=== PATIENT | female | born 1990 | race Caucasian/White ===

== ENCOUNTER 2021-12-07 11:37 | Inpatient (IN) | payer OTHER ==
[~2021-12-07] VITALS: Ht 162.6 cm; Wt 117.9 kg
[2021-12-07] MEDS ORDERED: DINOPROSTONE 10 MG SUPP VG ONE (13:15)
[2021-12-07] MEDS ORDERED: LR 500 ML IV ONE (13:15)
[2021-12-07] MEDS ORDERED: INSULIN REGULAR, HUMAN 100 UNITS/ML, 10 ML VIAL (humuLIN R) SUBCUT PRN (13:30)
[2021-12-07 13:54] LABS: BASOPHILS # (AUTO) 0.2 K/uL (0.0-0.2); EOSINOPHILS # (AUTO) 0.1 K/uL (0.0-0.4); HEMATOCRIT 35.4 % (36-48); HEMOGLOBIN 11.9 g/dL (12.0-16.0); LYMPHOCYTES # (AUTO) 1.8 K/uL (1.0-5.5); LYMPHOCYTES % (AUTO) 14.6 % (20.5-51.5); MEAN CORPUSCULAR HEMOGLOBIN 28 pg (27-31); MEAN CORPUSCULAR HGB CONC 34 % (32-36); MEAN CORPUSCULAR VOLUME 82 fL (79.0-98.0); MONOCYTES # (AUTO) 0.6 K/uL (0.0-1.0); MONOCYTES % (AUTO) 4.8 % (1.7-9.3); NEUTROPHILS # (AUTO) 9.5 K/uL (1.8-7.7); NEUTROPHILS % (AUTO) 77.6 % (40.0-70.0); PLATELET COUNT (AUTO) 251 K/uL (130-430); RED BLOOD CELL COUNT(AUTO) 4.32 MIL/uL (4.2-6.2); WHITE BLOOD COUNT (AUTO) 12.2 K/uL (4.8-10.8)
[2021-12-07] MEDS: LR 1,000 ML IV SCH (14:32)
[2021-12-07] MEDS ORDERED: AMPICILLIN SODIUM 2 GM in NS 100 ML IV ONE (15:45)
[2021-12-07 18:17] VITALS: BP_SYST 129
[2021-12-07] MEDS: AMPICILLIN SODIUM 1 GM in NS 50 ML IV SCH (21:18)
[2021-12-08] MEDS: LR 1,000 ML IV SCH ×2 (00:48→04:39)
[2021-12-08] MEDS: AMPICILLIN SODIUM 1 GM in NS 50 ML IV SCH ×4 (01:23→13:12)
[2021-12-08] MEDS ORDERED: MEPERIDINE HCL/PF 25 MG/ML DISP.SYRIN IVP PRN (04:15)
[2021-12-08] MEDS ORDERED: fentaNYL CITRATE/PF 100 MCG/2 ML AMP ONE (04:42)
[2021-12-08] MEDS ORDERED: ROPIVACAINE HCL/PF 0.2% 200 ML ONE (04:43)
[2021-12-08] MEDS: OXYTOCIN/0.9 % SODIUM CHLORIDE 1,000 ML IV SCH ×2 (05:11→23:56)
[2021-12-08] MEDS ORDERED: FENT2mCg/mL-ROPIVA0.2%/NS EPID 200 ML EP SCH (05:15)
[2021-12-08] MEDS ORDERED: LR 500 ML IV ONE (05:15)
[2021-12-08] MEDS ORDERED: LIDOCAINE PF 1% 30ML(POUR BTL) INJ ONE (12:20)
[2021-12-08] MEDS ORDERED: LIGHT MINERAL OIL 10 ML VIAL MC ONE ×2 (12:20→12:21)
[2021-12-08] MEDS ORDERED: NALOXONE HCL 0.4 MG/ML AMP (NARCAN) ONE (12:21)
[2021-12-08] MEDS ORDERED: LR 1,000 ML IV.SOLN IV ONE (14:45)
[2021-12-08] MEDS ORDERED: NS IRRIG SOLN 1000 ML IR ONE (14:45)
[2021-12-08] MEDS ORDERED: ONDANSETRON HCL 4 MG/2 ML VIAL ONE (14:45)
[2021-12-08] MEDS ORDERED: BUPIVACAINE /PF 0.5% 30 ML VIAL ONE (14:45)
[2021-12-08] MEDS ORDERED: MORPHINE SULFATE 10MG/10ML PF AMP ONE (14:45)
[2021-12-08] MEDS ORDERED: CEFAZOLIN 2 GM IVPB PREMIX 50 ML IV ONE (15:00)
[2021-12-08] MEDS ORDERED: NALBUPHINE HCL 10 MG/ML AMP IVP PRN (15:30)
[2021-12-08] MEDS ORDERED: DIPHENHYDRAMINE INJ 50 MG/ML VIAL IVP PRN (15:30)
[2021-12-08] MEDS ORDERED: NALOXONE HCL 0.4 MG/ML AMP (NARCAN) IVP PRN ×2 (15:30)
[2021-12-08] MEDS ORDERED: MORPHINE SULFATE 10MG/10ML PF AMP EP SCH (15:30)
[2021-12-08 15:49] VITALS: BP_SYST 123
[2021-12-08] MEDS ORDERED: KETOROLAC TROMETHAMINE 30 MG VIAL ONE (16:57)
[2021-12-08] MEDS: KETOROLAC TROMETHAMINE 60 MG/2 ML VIAL IM PRN (17:00)
[2021-12-08] MEDS: ONDANSETRON HCL 4 MG/2 ML VIAL IVP PRN (18:42)
[2021-12-08] MEDS ORDERED: ACETAMINOPHEN I.V. 1000 MG 100 ML IV ONE (19:15)
[2021-12-08] MEDS ORDERED: ceFAZolin SODIUM 2 GM in D5W 100 ML IV SCH (23:45)
[2021-12-09] MEDS: KETOROLAC TROMETHAMINE 60 MG/2 ML VIAL IM PRN (00:19)
[2021-12-09] MEDS: ONDANSETRON HCL 4 MG/2 ML VIAL IVP PRN (00:54)
[2021-12-09] MEDS ORDERED: KETOROLAC TROMETHAMINE 30 MG VIAL IM ONE (08:15)
[2021-12-09] MEDS ORDERED: ceFAZolin SODIUM 1 GM VIAL ONE ×2 (09:33→18:28)
[2021-12-09] MEDS ORDERED: KETOROLAC TROMETHAMINE 30 MG VIAL IVP SCH (09:45)
[2021-12-09] MEDS ORDERED: MORPHINE 2 MG/ML INJ. SYRINGE IVP PRN (10:15)
[2021-12-09] MEDS ORDERED: NALOXONE HCL 0.4 MG/ML AMP (NARCAN) IVP PRN ×2 (10:15→18:00)
[2021-12-09] MEDS ORDERED: MORPHINE SULFATE 10 MG/ML VIAL IVP PRN (12:00)
[2021-12-09] MEDS ORDERED: KETOROLAC TROMETHAMINE 30 MG VIAL IM SCH (12:00)
[2021-12-09] MEDS ORDERED: ceFAZolin SODIUM 1 GM in D5W 50 ML IV SCH (14:00)
[2021-12-09] MEDS ORDERED: HYDROcodone/ACETAMIN 5-325 MG TAB (NORCO/ VICODIN) PO PRN (18:00)
[2021-12-09] MEDS ORDERED: OXYCODONE/ACETAMINOPHEN 5-325 TABLET PO PRN ×2 (18:00)
[2021-12-09] MEDS ORDERED: DIPH-TET-PERTUS Vaccine 0.5 ML VIAL (ADACEL) I.M. PRN (18:00)
[2021-12-09] MEDS ORDERED: LANOLIN 7 GM OINT. TP PRN (18:00)
[2021-12-09] MEDS ORDERED: SIMETHICONE 80 MG TAB.CHEW PO PRN (18:00)
[2021-12-09] MEDS: IBUPROFEN 600 MG TABLET PO SCH ×2 (18:31→23:36)
[2021-12-09] MEDS ORDERED: SENNOSIDES/DOCUSATE SODIUM 1 TAB TABLET(SENOKOT-S) PO SCH (21:00)
[2021-12-10] MEDS: IBUPROFEN 600 MG TABLET PO SCH ×2 (06:24→14:01)
[2021-12-10 07:47] LABS: BASOPHILS % (AUTO) 0.2 % (0.0-2.0); EOSINOPHILS # (AUTO) 0.2 K/uL (0.0-0.4); EOSINOPHILS % (AUTO) 1.5 % (0.0-4.0); HEMATOCRIT 25.7 % (36-48); HEMOGLOBIN 8.6 g/dL (12.0-16.0); LYMPHOCYTES # (AUTO) 2.8 K/uL (1.0-5.5); LYMPHOCYTES % (AUTO) 22.8 % (20.5-51.5); MEAN CORPUSCULAR HEMOGLOBIN 28 pg (27-31); MEAN CORPUSCULAR HGB CONC 33 % (32-36); MEAN CORPUSCULAR VOLUME 83 fL (79.0-98.0); MONOCYTES # (AUTO) 0.8 K/uL (0.0-1.0); MONOCYTES % (AUTO) 6.7 % (1.7-9.3); NEUTROPHILS # (AUTO) 8.4 K/uL (1.8-7.7); NEUTROPHILS % (AUTO) 68.8 % (40.0-70.0); PLATELET COUNT (AUTO) 199 K/uL (130-430); RED BLOOD CELL COUNT(AUTO) 3.09 MIL/uL (4.2-6.2); WHITE BLOOD COUNT (AUTO) 12.2 K/uL (4.8-10.8)
[2021-12-10] MEDS ORDERED: MEASLES,MUMPS&RUBELLA VACC/PF 12500 UNIT/0.5 ML VIAL SUBQ PRN (20:00)
== END 2021-12-10 21:15 | disposition home or self-care (01) | DRG 787 ==
LOC: OBSVTOIN 11:37 → SPU 11:37
PROVIDERS: ADMIT Specialist; ATTEND Specialist
PROC: 10D00Z1 Extraction of Products of Conception, Low, Open Approach (ICD-10-PCS; principal; 2021-12-08 15:00)
PROC: 3E0234Z Introduction of Serum, Toxoid and Vaccine into Muscle, Percutaneous Approach (ICD-10-PCS; 2021-12-10)
DX: O62.2 Other uterine inertia (principal); O41.03X0 Oligohydramnios, third trimester, not applicable or unspecified; O33.9 Maternal care for disproportion, unspecified; O24.424 Gestational diabetes mellitus in childbirth, insulin controlled; O69.81X0 Labor and delivery complicated by cord around neck, without compression, not applicable or unspecified; Z20.822 Contact with and (suspected) exposure to COVID-19; O76 Abnormality in fetal heart rate and rhythm complicating labor and delivery; E66.3 Overweight; Z37.0 Single live birth; Z3A.37 37 weeks gestation of pregnancy; Z23 Encounter for immunization
CPT/HCPCS: 36415; 82947; 82962; 85025; 86592; 86886; 86900; 86901; 90715; 94760; J0131; J0290; J0690; J1885; J2001; J2270; J2274; J2310; J2405; J2590; J2790; J3010; J3490; J7060; J7120